=== PATIENT | male | born 1990 | race African-American/Black ===

== ENCOUNTER 2018-04-11 04:15 | Emergency (ER) | payer OTHER ==
[~2018-04-11] VITALS: Ht 175.3 cm; Wt 68.0 kg
[2018-04-11 04:29] VITALS: BP 141/77
--- NOTE | 2018-04-11 04:37 | ED UPPER/LOWER EXTREMITY COMPL ---
History of Present Illness General Chief Complaint: Hand or Wrist Injury Stated Complaint: "I THINK I BROKE MY LT HAND, A WINDOW FELL ON ME" Source: patient Exam Limitations: no limitations Vital Signs & Intake/Output Vital Signs & Intake/Output Vital Signs Date Time Temp Pulse Resp B/P B/P Pulse O2 O2 Flow FiO2 Mean Ox Delivery Rate 04/11 0429 99.2 62 20 141/77 99 Room Air Allergies Coded Allergies: sulfamethoxazole (From BACTRIM) (Intermediate, DIZZINESS 04/11/18) trimethoprim (From BACTRIM) (Intermediate, DIZZINESS 04/11/18) Triage Note: PT FROM HOME WITH C/O LEFT HAND LACERATIONS TO FIRST 3 FINGERS, BLEEDING CONTROLLED. PT REPORTS HE WAS OPENING A WINDOW AND THE TOP HALF CAME DOWN ON HIS HAND. PT REPORTS THAT HE FELT LIKE HE WAS GONNA PASS OUT FROM THE PAIN. PT ALSO REPORTS PAIN IN LEFT HAND WRIST. Triage Nurses Notes Reviewed? yes Onset: Abrupt Duration: hour(s): Severity: moderate Pain/Injury Location: Left: 1st finger, 2nd finger, 3rd finger. Method of Injury: direct blow Modifying Factors: Improves With: rest. Associated Symptoms: swelling HPI: 28 yo gentleman presents with pain and abrasions of the distal end of his left 2nd, 3rd, and 4th digits. He notes, "a window fell on them... it really hurts." He notes there was some bleeding around the nails, whicih self resolved. No deformity. He is able to bend his wrist and fingers without problem. He is otherwise well. Past History Travel History Traveled to [place] past 21 day No Medical History Any Pertinent Medical History? 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 No Review of Systems Review of Systems Constitutional: Reports: no symptoms. EENTM: Reports: no symptoms. Respiratory: Reports: no symptoms. Cardiovascular: Reports: no symptoms. Gastrointestinal/Abdominal: Reports: no symptoms. Genitourinary: Reports: no symptoms. Musculoskeletal: Reports: no symptoms. Skin: Reports: no symptoms. Neurological/Psychological: Reports: no symptoms. Hematologic/Endocrine: Reports: no symptoms. Immunological: Reports: no symptoms. All Other Systems: Reviewed and Negative Physical Exam Physical Exam General Appearance: well developed/nourished, mild distress Head: atraumatic Eyes: Bilateral: normal appearance. Hand Left: 2nd finger, 3rd finger, 4th finger, abrasions near the nails, no deformity. no sub ungal hematoma. ROM is normal. Light touch is normal. Progress Differential Diagnosis: contusion, fracture, sprain Plan of Care: Current Medications Sig/Michael Start time Last Medication Dose Stop Time Status Admin Ibuprofen 800 MG ONCE ONE 04/11 530 UNVr (Motrin) 04/11 531 Diagnostic Imaging: Viewed by Me: Radiology Read. Discussed w/RAD: Radiology Read. Radiology Impression: PATIENT: JEREMIAS HERNANDEZ PRESENT AGE: 28 PATIENT ACCOUNT NO: [id number] : 88 LOCATION: [facility] ORDERING PHYSICIAN: Timmy Vinson MD SERVICE DATE: 04/11/18 EXAM TYPE: RAD - XRY-HAND, LEFT EXAMINATION: XR HAND, LEFT CLINICAL INFORMATION: Pain. Trauma. COMPARISON: None TECHNIQUE: PA, lateral, and oblique views of the left hand. FINDINGS: No fracture or dislocation. Alignment is anatomic. Joint spaces are maintained. The soft tissues are unremarkable. IMPRESSION: No fracture or malalignment. DICTATED BY: Zachary Singh MD DATE/TIME DICTATED:04/11/18447 [employer] OWNER:JOEY DATE/TIME TRANSCRIBED:04/11/18447 CONFIDENTIAL, DO NOT COPY WITHOUT APPROPRIATE AUTHORIZATION. <Electronically signed in Other Vendor System> SIGNED BY: Zachary Singh MD 04/11/18452 Departure Departure Disposition: HOME OR SELF CARE Condition: Stable Clinical Impression Primary Impression: Contusion Referrals: Patient Has No Primary Care Dr (PCP/Family) Departure Forms: Customer Survey General Discharge Information
--- NOTE | 2018-04-11 04:53 | RADIOLOGY REPORT ---
EXAMINATION: XR HAND, LEFT CLINICAL INFORMATION: Pain. Trauma. COMPARISON: None TECHNIQUE: PA, lateral, and oblique views of the left hand. FINDINGS: No fracture or dislocation. Alignment is anatomic. Joint spaces are maintained. The soft tissues are unremarkable. IMPRESSION: No fracture or malalignment.
[2018-04-11] MEDS ORDERED: IBUPROFEN800 M1 PO (05:27)
== END 2018-04-11 05:45 ==
LOC: ERH 04:15
DX: S60.022A Contusion of left index finger without damage to nail, initial encounter (principal); S60.032A Contusion of left middle finger without damage to nail, initial encounter; S60.042A Contusion of left ring finger without damage to nail, initial encounter; W23.0XXA Caught, crushed, jammed, or pinched between moving objects, initial encounter; Y92.9 Unspecified place or not applicable; Y93.9 Activity, unspecified
CPT/HCPCS: 73130-LT